=== PATIENT | female | born 1945 | race African-American/Black ===

== ENCOUNTER → 2018-01-29 | Outpatient (CLI) | payer BC, MEDICARE | END | disposition home or self-care (01) | LOC: MAMMO 10:12 | DX: Z12.31 Encounter for screening mammogram for malignant neoplasm of breast (principal) | CPT/HCPCS: 77063; 77067 ==

== ENCOUNTER → 2019-05-26 | Outpatient (CLI) | payer BC ==
[~2019-05-26] MED LIST: AMLO5TAB10 PO; CLOP75TA57 PO; CRESTOR10 MG PO; METO25TA4 PO; NAPR250T6 PO
--- NOTE | 2019-05-26 14:07 | KCIC ---
CT of the chest without contrast, low dose lung cancer screening protocol COMPARISON STUDY: None TECHNIQUE: Multidetector CT imaging of the chest was performed using a low-dose, lung cancer screening protocol. INDICATION: 74-year-old female with greater than greater than 30 pack-year history of smoking. Discussion: No pneumothorax is identified. No pleural effusion is seen. No acute appearing focal consolidative infiltrate is identified. 2 mm noncalcified nodule seen in the left upper lobe (thin axial image 64). Somewhat ill-defined groundglass opacity adjacent to the thoracic aorta and the anterior left upper lobe is seen (axial image 115). There is 7 mm noncalcified nodule in the left lower lobe (axial image 149. There is an adjacent 3 mm nodule. Possible minimal areas of calcification are seen within these nodules. Subpleural blebs are seen in the bilateral lung apices, greater on the right. Scattered ill-defined groundglass opacities are seen throughout the right upper lobe. These range in size measuring 3 to 5 mm in thickness. Reference lesions can be seen on axial image 55 and 68 Heart size is normal. Mitral valve calcification noted. No significant pericardial effusion is identified. Limited noncontrast enhanced evaluation the mediastinum demonstrates no gross mediastinal adenopathy. Upper and lower lobe bronchiectasis is noted. Central airways remain grossly patent. Limited visualization of the upper abdomen demonstrates no acute abnormality. No acute osseous changes are seen.. Anterior wedging of the T8 and T7 vertebral bodies likely reflects chronic compression fracture. No acute osseous abnormality is identified. IMPRESSION: 1. Scattered pulmonary nodules largest measuring 7 mm in the left lower lobe. Other smaller pulmonary nodules and groundglass opacities as described Lung RADS category 3. Recommend 6 month low-dose CT scan 2. Changes of COPD CT DOSING PQRS STATEMENT: One or more of the following individualized dose reduction techniques were utilized for this examination: 1. Automated exposure control 2. Adjustment of the mA and/or kV according to patient size 3. Use of iterative reconstruction technique Electronically signed by: Santiago Marcano MD (05/26/2019 2:04 PM) [id number]
== END | disposition home or self-care (01) ==
LOC: KCIC CT 09:36
PROVIDERS: ATTEND Internal Medicine
DX: Z12.2 Encounter for screening for malignant neoplasm of respiratory organs (principal); F17.200 Nicotine dependence, unspecified, uncomplicated; R91.8 Other nonspecific abnormal finding of lung field; J44.9 Chronic obstructive pulmonary disease, unspecified; I05.9 Rheumatic mitral valve disease, unspecified; R91.1 Solitary pulmonary nodule
CPT/HCPCS: G0297

== ENCOUNTER 2020-05-31 12:22 | Observation (INO) | payer BC, MEDICARE ==
[~2020-05-31] VITALS: Ht 162.6 cm; Wt 69.9 kg
[~2020-05-31 12:22] MED LIST changes: +AMLO-186 PO; -AMLO5TAB10 PO
--- NOTE | 2020-05-31 12:46 | RAD ---
Examination: PORTABLE CHEST 1V History: Reason: CHEST PAIN / Comparison/Correlation: 05/26/2019 low-dose CT chest Findings: Portable erect frontal view of chest was obtained. Heart size and pulmonary vessels are normal. No infiltrate or pleural effusion. No pneumothorax. Bony structures are unremarkable. Impression: No active disease. Electronically signed by: Zoran Jones MD (05/31/2020 12:43 PM) [id number]
[2020-05-31] MEDS ORDERED: AMLO-186 PO (12:59)
[2020-05-31] MEDS ORDERED: CHOL500021 PO (12:59)
[2020-05-31] MEDS ORDERED: ASPI325T11 PO (12:59)
[2020-05-31] MEDS ORDERED: HYDR-2759 PO (13:00)
[2020-05-31] MEDS ORDERED: METO-239 PO (13:00)
[2020-05-31] MEDS ORDERED: NAPR-514 PO (13:00)
[2020-05-31] MEDS ORDERED: ATOR20TA58 PO (13:00)
[2020-05-31 13:01] LABS: BASO # 0.1 x10^3/uL (0.0-0.2); BASO % 1 % (0-3); EOS # 0.2 x10^3/uL (0.0-0.7); EOS % 4 % (0-3); HEMATOCRIT 40.4 % (36.0-47.0); HEMOGLOBIN 13.2 g/dL (12.0-15.5); LYMPH # 1.6 x10^3/uL (1.0-4.8); LYMPH % 32 % (24-48); MEAN CORPUSCULAR HEMOGLOBIN 27 pg (25-35); MEAN CORPUSCULAR HGB CONC 33 g/dL (31-37); MEAN CORPUSCULAR VOLUME 81 fL (79-100); MONO # 0.2 x10^3/uL (0.0-1.1); MONO % 5 % (0-9); NEUT # 2.9 x10^3/uL (1.8-7.7); NEUT % 58 % (31-73); PLATELET COUNT 204 x10^3/uL (140-400); RED BLOOD COUNT 4.97 x10^6/uL (3.50-5.40); RED CELL DISTRIBUTION WIDTH 16.2 % (11.5-14.5)
[2020-05-31 13:12] LABS: CALCIUM 9.8 mg/dL (8.5-10.1); CREATININE 0.9 mg/dL (0.6-1.0); GFR 74.3; POTASSIUM 4.1 mmol/L (3.5-5.1)
[2020-05-31 13:18] LABS: ALBUMIN 3.8 g/dL (3.4-5.0); MAGNESIUM 1.7 mg/dL (1.8-2.4); TOTAL BILIRUBIN 0.3 mg/dL (0.2-1.0); TOTAL PROTEIN 7.8 g/dL (6.4-8.2)
[2020-05-31 13:28] LABS: PROTHROMBIN TIME PATIENT 13.2 SEC (11.7-14.0)
[2020-05-31] MEDS ORDERED: MAGNESIUM SULFATE 1GM 100 ML IV ONE (14:00)
--- NOTE | 2020-05-31 14:39 | PHYS DOC ---
Past Medical History Past Medical History: High Cholesterol, Hypertension, TIA Past Surgical History: No Surgical History Smoking Status: Current Every Day Smoker Alcohol Use: None General Adult EDM: Chief Complaint: CHEST PAIN HPI: HPI: Patient is a 75 year old female who presented to ER with complaint of substernal chest pain started last night and went away. Patient said pain came back again this morning so she came here for evaluation. Patient denies any nausea vomiting, no diaphoresis. Patient had no history of coronary disease. Patient has history of hypertension. Patient had no fever, no cough. Patient said her niece due to Covid infection 4 months ago. Patient says she has been checked with multiple times for COvic and all came back negative. Review of Systems: Review of Systems: Constitutional: Denies fever or chills. [] Eyes: Denies change in visual acuity. [] HENT: Denies nasal congestion or sore throat. [] Respiratory: Denies cough or shortness of breath. [] Cardiovascular: Positive for chest pain, no edema. GI: Denies abdominal pain, nausea, vomiting, bloody stools or diarrhea. [] : Denies dysuria. [] Musculoskeletal: Denies back pain or joint pain. [] Integument: Denies rash. [] Neurologic: Denies headache, focal weakness or sensory changes. [] Endocrine: Denies polyuria or polydipsia. [] Lymphatic: Denies swollen glands. [] Psychiatric: Denies depression or anxiety. [] Heart Score: HEART Score for Chest Pain: HEART Score for Chest Pain Response (Comments) Value History Moderately Suspicious 1 ECG Nonspecific Repolarizatio 1 Age > 65 2 Risk Factors >3 Risk Factors or Hx CAD 2 Troponin < Normal Limit 0 Total 6 Risk Factors: Risk Factors: DM, Current or recent (<one month) smoker, HTN, HLP, family history of CAD, obesity. Risk Scores: Score 0 - 3: 2.5% MACE over next 6 weeks - Discharge Home Score 4 - 6: 20.3% MACE over next 6 weeks - Admit for Clinical Observation Score 7 - 10: 72.7% MACE over next 6 weeks - Early Invasive Strategies Current Medications: Current Medications Medications (Trade) Dose Ordered Sig/Sharee Start Time Stop Time Status Last Admin Dose Admin Magnesium Sulfate/ Dextrose 100 ml @ 100 mls/hr 1X ONCE 05/31/20 14:00 05/31/20 14:59 05/31/20 14:17 100 MLS/HR Allergies: Allergies: Allergies Coded Allergies Type Severity Reaction Last Updated Verified Penicillins Allergy Unknown 08/29/13 Yes ampicillin Allergy Unknown 08/29/13 Yes codeine Allergy Unknown 08/29/13 Yes Physical Exam: PE: Constitutional: Well developed, well nourished, no acute distress, non-toxic appearance. [] HENT: Normocephalic, atraumatic, bilateral external ears normal, oropharynx moist, no oral exudates, nose normal. [] Eyes: PERRLA, EOMI, conjunctiva normal, no discharge. [] Neck: Normal range of motion, no tenderness, supple, no stridor. [] Cardiovascular:Heart rate regular rhythm, loud systolic murmur [] Lungs & Thorax: Bilateral breath sounds clear to auscultation [] Abdomen: Bowel sounds normal, soft, no tenderness, no masses, no pulsatile masses. [] Skin: Warm, dry, no erythema, no rash. [] Back: No tenderness, no CVA tenderness. [] Extremities: No tenderness, no cyanosis, no clubbing, ROM intact, no edema. [] Neurologic: Alert and oriented X 3, normal motor function, normal sensory function, no focal deficits noted. [] Psychologic: Affect normal, judgement normal, mood normal. [] Current Patient Data: Labs: Laboratory Tests Test 05/31/20 12:48 White Blood Count 5.0 x10^3/uL (4.0-11.0) Red Blood Count 4.97 x10^6/uL (3.50-5.40) Hemoglobin 13.2 g/dL (12.0-15.5) Hematocrit 40.4 % (36.0-47.0) Mean Corpuscular Volume 81 fL (79-100) Mean Corpuscular Hemoglobin 27 pg (25-35) Mean Corpuscular Hemoglobin Concent 33 g/dL (31-37) Red Cell Distribution Width 16.2 % (11.5-14.5) H Platelet Count 204 x10^3/uL (140-400) Neutrophils (%) (Auto) 58 % (31-73) Lymphocytes (%) (Auto) 32 % (24-48) Monocytes (%) (Auto) 5 % (0-9) Eosinophils (%) (Auto) 4 % (0-3) H Basophils (%) (Auto) 1 % (0-3) Neutrophils # (Auto) 2.9 x10^3/uL (1.8-7.7) Lymphocytes # (Auto) 1.6 x10^3/uL (1.0-4.8) Monocytes # (Auto) 0.2 x10^3/uL (0.0-1.1) Eosinophils # (Auto) 0.2 x10^3/uL (0.0-0.7) Basophils # (Auto) 0.1 x10^3/uL (0.0-0.2) Prothrombin Time 13.2 SEC (11.7-14.0) Prothrombin Time INR 1.0 (0.8-1.1) Activated Partial Thromboplast Time 36 SEC (24-38) Sodium Level 140 mmol/L (136-145) Potassium Level 4.1 mmol/L (3.5-5.1) Chloride Level 104 mmol/L (98-107) Carbon Dioxide Level 22 mmol/L (21-32) Anion Gap 14 (6-14) Blood Urea Nitrogen 16 mg/dL (7-20) Creatinine 0.9 mg/dL (0.6-1.0) Estimated GFR (Cockcroft-Gault) 74.3 BUN/Creatinine Ratio 18 (6-20) Glucose Level 126 mg/dL (70-99) H Calcium Level 9.8 mg/dL (8.5-10.1) Magnesium Level 1.7 mg/dL (1.8-2.4) L Total Bilirubin 0.3 mg/dL (0.2-1.0) Aspartate Amino Transferase (AST) 24 U/L (15-37) Alanine Aminotransferase (ALT) 16 U/L (14-59) Alkaline Phosphatase 61 U/L (46-116) Troponin I Quantitative < 0.017 ng/mL (0.000-0.055) KR-Xlu-O-Type Natriuretic Peptide 1664 pg/mL (0-124) H Total Protein 7.8 g/dL (6.4-8.2) Albumin 3.8 g/dL (3.4-5.0) Albumin/Globulin Ratio 1.0 (1.0-1.7) Lipase 57 U/L (73-393) L Laboratory Tests 10/26/20 12:48 Laboratory Tests 05/31/20 12:48 Vital Signs: Vital Signs Date Time Temp Pulse Resp B/P (MAP) Pulse Ox O2 Delivery O2 Flow Rate FiO2 05/31/20 13:03 98.8 98 24 137/65 (89) 100 Room Air 98.8 EKG: EKG: EKG was done 1232, heart rate of 93 bpm, sinus rhythm, no ST segment ovation, T wave inversion in lateral leads. Radiology/Procedures: Radiology/Procedures: [][facility] [address] [place] [address] IMAGING REPORT Signed PATIENT: FLAKO SANDERS AACCOUNT: [id number] : 1945 LOCATION: ER AGE: 75 SEX: F EXAM STATUS: REG ER ORD. PHYSICIAN: JOSEF EDDY DO REASON: CHEST PAIN PROCEDURE: PORTABLE CHEST 1V Examination: PORTABLE CHEST 1V History: Reason: CHEST PAIN / Comparison/Correlation: 05/26/2019 low-dose CT chest Findings: Portable erect frontal view of chest was obtained. Heart size and pulmonary vessels are normal. No infiltrate or pleural effusion. No pneumothorax. Bony structures are unremarkable. Impression: No active disease. Electronically signed by: Zoran Marie MD (05/31/2020 12:43 PM) [id number] DICTATED and SIGNED BY: ZORAN MARIE MD DATE: 05/31/20 1243 Course & Med Decision Making: Course & Med Decision Making Pertinent Labs and Imaging studies reviewed. (See chart for details) Patient is a 74-year-old female who presented to ER with chest pain, her lab work and EKG did not show any acute problem, however patient have a new detected systolic heart murmur on physical examination. Patient will need to be admitted for further evaluation and treatment, discussed with Dr. Ashraf who agreed to admit patient Dragon Disclaimer: Dragon Disclaimer: This electronic medical record was generated, in whole or in part, using a voice recognition dictation system. Departure Departure Impression: Primary Impression: Chest pain Disposition: ADMITTED INPT THIS HOSP Admitting Physician: HALEYS (Dr. Riffel) Condition: IMPROVED Referrals: GALLITO SOLANO MD (PCP) JOSEF EDDY DO May 31, 2020 14:39
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
[2020-05-31] MEDS ORDERED: ACETAMINOPHEN 325 MG TABLET. PO PRN (16:15)
[2020-05-31] MEDS ORDERED: DOCUSATE SODIUM 100 MG CAPSULE. PO PRN (16:15)
[2020-05-31] MEDS ORDERED: ONDANSETRON PF 4 MG/2 ML VIAL. IV PRN (16:15)
[2020-05-31] MEDS ORDERED: NITROGLYCERIN SUBLINGUAL 0.4 MG BOTTLE OF 25. SL PRN (16:15)
[2020-05-31] MEDS ORDERED: HYDROcodone/APAP 5/325MG 1 TAB TABLET PO PRN (16:30)
[2020-05-31] MEDS ORDERED: ASPIRIN ENTERIC COATED 325 MG TABLET.DR. PO ONE (16:30)
--- NOTE | 2020-05-31 17:37 | EKG ---
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
[2020-05-31 19:10] VITALS: BP 121/56
--- NOTE | 2020-05-31 19:10 | NUR ---
Pt arrived to room 201 per wheelchair at 1845 pt oriented to room and surroundings,poc explained pt denied pain assessment completed vs obtained and stable. Will resume care and continue to monitor pt call light in reach.
[2020-05-31] MEDS: ATORVASTATIN CALCIUM 20 MG TABLET PO SCH (21:09)
[2020-05-31] MEDS: ENOXAPARIN 40 MG/0.4 ML SYRINGE. SQ SCH (21:09)
[2020-05-31 22:42] VITALS: BP 112/49
[2020-06-01] VITALS (18 sets, daily range): BP systolic 92–146; BP diastolic 42–69
[2020-06-01 05:46] LABS: CALCIUM 8.8 mg/dL (8.5-10.1); CREATININE 0.8 mg/dL (0.6-1.0); GFR 85.1; MAGNESIUM 1.7 mg/dL (1.8-2.4); POTASSIUM 4.3 mmol/L (3.5-5.1)
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
[2020-06-01] MEDS ORDERED: MAGNESIUM SULFATE 2GM 50 ML IV ONE (10:00)
[2020-06-01] MEDS ORDERED: IOHEXOL 300 MG/ML 100ML VIAL. ONE ×2 (10:05→12:06)
[2020-06-01] MEDS ORDERED: LIDOCAINE 1% PF 2 ML VIAL. ONE (10:05)
[2020-06-01] MEDS: amLODIPine BESYLATE 5 MG TABLET PO SCH (10:14)
[2020-06-01] MEDS: METOPROLOL SUCC 24HR ER 25 MG TAB.ER.24H. PO SCH (10:14)
[2020-06-01] MEDS: ASPIRIN ENTERIC COATED 325 MG TABLET.DR. PO SCH (10:14)
[2020-06-01 10:37] LABS: CHOLESTEROL/HDL RATIO 2.7
[2020-06-01 10:53] LABS: BILIRUBIN,URINE NEGATIVE (NEG); CLARITY,URINE CLEAR; COLOR,URINE YELLOW; NITRITE,URINE NEGATIVE (NEG); PROTEIN,URINE NEGATIVE (NEG-TRACE)
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
[2020-06-01 11:02] LABS: BACTERIA,URINE 0 /HPF (0-FEW); RBC,URINE 0 /HPF (0-2); WBC,URINE 0 /HPF (0-4)
[2020-06-01] MEDS ORDERED: fentaNYL PF VIAL 100 MCG/2 ML VIAL ONE (11:25)
[2020-06-01] MEDS ORDERED: NITROGLYCERIN 200 MCG/2 ML SYRINGE FOR CATH/VASC LAB. ONE (11:26)
[2020-06-01] MEDS ORDERED: MIDAZOLAM HCL/PF 2 MG/2 ML VIAL. ONE (11:26)
[2020-06-01] MEDS ORDERED: HEPARIN for IV BOLUS 10,000 UNIT/10 ML VIAL. ONE (11:26)
[2020-06-01] MEDS ORDERED: VERAPAMIL 5 MG/2 ML VIAL. ONE (11:26)
[2020-06-01] MEDS ORDERED: fentaNYL PF VIAL 100 MCG/2 ML VIAL IV ONE (11:30)
[2020-06-01] MEDS ORDERED: NITROGLYCERIN 200 MCG/2 ML SYRINGE FOR CATH/VASC LAB. IART ONE (11:30)
[2020-06-01] MEDS ORDERED: LIDOCAINE 1% PF 2 ML VIAL. INJ ONE (11:30)
[2020-06-01] MEDS ORDERED: HEPARIN for IV BOLUS 10,000 UNIT/10 ML VIAL. IART ONE (11:30)
[2020-06-01] MEDS ORDERED: VERAPAMIL 5 MG/2 ML VIAL. IART ONE (11:30)
[2020-06-01] MEDS ORDERED: IODIXANOL 320 MG/ML 100 ML VIAL. IART ONE (11:30)
[2020-06-01] MEDS ORDERED: MIDAZOLAM HCL/PF 2 MG/2 ML VIAL. IV ONE (11:30)
--- NOTE | 2020-06-01 11:33 | NUR ---
SS following for discharge planning. SS reviewed pt chart and discussed with pt RN. Pt is from home and is currently on room air. PT/OT ordered. SS will continue to follow for discharge planning.
[2020-06-01] MEDS ORDERED: CONTRAST GIVEN. MC PRN (11:45)
[2020-06-01] MEDS ORDERED: IOHEXOL 300 MG/ML 100ML VIAL. IART ONE (12:00)
--- NOTE | 2020-06-01 15:17 | CARD ---
MR#: [id number] Date of Study: 06/01/2020 Ordering Physician: SAIMA LADD, Referring Physician: SAIMA LADD Tech: Nat Pepe APPROVED REPORT Technologist: Nat Pepe Nurse: Niya Torres RN Procedure(s) performed: Left heart catheterization and selective coronary angiography via right trans radial approach fl time: 18.3 min dose: 76 gycm2 contrast: 224 ml moderate sedation: 54 mins INDICATION The indication(s) include : unstable angina . CSHA Clinical Frailty Scale CSHA Clinical Frailty Scale: Mildly Frail Heart Failure Heart Failure: No PROCEDURE NARRATIVE After explaining the risks, benefits and alternative options, informed consent was obtained from aidan ent. Patient was brought to the cardiac Hazard Mitigation Officer and right wrist was prepped and draped in the usual fashion after confirming a positive modified Obdulio's test. Arterial access was obtained in the [facility] t radial artery and a 6 [place] sheath was inserted. 6 [place] Tobin catheter was used to perform keely ective angiography of the left coronary artery. Several attempts to engage the right coronary artery with the Chadd catheter followed by 6 [place] JR4, 6 [place] AR mod and 6 [place] AL-1 catheters were u nsuccessful. A pigtail catheter was placed in the ascending aorta and root aortogram was performed t hat did not show any right coronary artery takeoff confirming the earlier suspicion that a nondominan t RCA is coming from the LAD. We will confirm this with coronary CT angiography at a later date. LV EDP and transaortic gradients were measured. Left ventriculography was not performed due to contrast load used for the procedure. Patient tolerated the procedure well. Hemostasis was achieved using T R band. There were no immediate complications. The following findings were noted. FINDINGS 1. Hemodynamics: Left ventricular end-diastolic pressure of 13 mmHg. No pullback gradient across th e aortic valve. 2. Coronary angiography: a. The left main coronary artery arose from the left sinus of Valsalva, gave rise to the left anteri or descending and left circumflex arteries and did not show any significant stenosis. b. The left anterior descending artery did not show any significant stenosis. c. The left circumflex artery was a large and dominant vessel that did not show any significant sten osis. d. The right coronary artery appears to be nondominant and arising from the mid segment of the left anterior descending artery. We will confirm this with coronary CT angiography at a later date. Conclusion No significant coronary artery stenosis. The right coronary artery appears to be nondominant, anomal ous with the takeoff from left anterior descending artery. We will confirm this with coronary CT ang iography as an outpatient. Recommendations Medical Therapy Signed by : Saima Ladd, Electronically Approved : 06/01/2020 15:16:45
[2020-06-01] MEDS: ENOXAPARIN 40 MG/0.4 ML SYRINGE. SQ SCH (17:00)
[2020-06-01] MEDS: ATORVASTATIN CALCIUM 20 MG TABLET PO SCH (20:47)
[2020-06-02 02:33] VITALS: BP 111/60
[2020-06-02 03:28] LABS: BASO % 1 % (0-3); EOS # 0.2 x10^3/uL (0.0-0.7); EOS % 4 % (0-3); HEMATOCRIT 36.5 % (36.0-47.0); HEMOGLOBIN 12.1 g/dL (12.0-15.5); LYMPH # 1.4 x10^3/uL (1.0-4.8); LYMPH % 34 % (24-48); MEAN CORPUSCULAR HEMOGLOBIN 27 pg (25-35); MEAN CORPUSCULAR HGB CONC 33 g/dL (31-37); MEAN CORPUSCULAR VOLUME 81 fL (79-100); MONO # 0.4 x10^3/uL (0.0-1.1); MONO % 9 % (0-9); NEUT # 2.3 x10^3/uL (1.8-7.7); NEUT % 53 % (31-73); PLATELET COUNT 166 x10^3/uL (140-400); RED CELL DISTRIBUTION WIDTH 15.9 % (11.5-14.5); WHITE BLOOD COUNT 4.3 x10^3/uL (4.0-11.0)
[2020-06-02 03:37] LABS: CALCIUM 9.1 mg/dL (8.5-10.1); CREATININE 0.9 mg/dL (0.6-1.0); GFR 74.3; POTASSIUM 4.2 mmol/L (3.5-5.1)
[2020-06-02 07:00] VITALS: BP 111/54
[2020-06-02] MEDS: ASPIRIN ENTERIC COATED 325 MG TABLET.DR. PO SCH (09:15)
[2020-06-02] MEDS: amLODIPine BESYLATE 5 MG TABLET PO SCH (09:16)
[2020-06-02] MEDS: METOPROLOL SUCC 24HR ER 25 MG TAB.ER.24H. PO SCH (09:17)
--- NOTE | 2020-06-02 09:48 | SNU/HH DC ---
DISCHARGE WITH HOME HEALTH DISCHARGE INFORMATION: Final Diagnosis: Problems Medical Problems: (1) Chest pain Status: Acute Condition on Discharge: Stable CODE STATUS: Code Status: Full HOME HEALTH: Face to Face: I certify this patient is under my care and that I, or a nurse practitioner or physician's therapist's assistant working with me, had a face to face encounter that meets the physician face to face encounter requirements with this patient on []. Medical Complications: Other (Recent hospitalization with cardiac cath check cath site) Intermediate For: Assess Cardiopulm Status, Assess & Educate Safety RN For Eval/Treatment: Yes Physical Therapy For: Evalulation/Treatment Occupational Therapy For: Evaluation/Treatment Home Health Aide For: Self-care HEAD START DIRECTOR For: Community Resources Pt Meets Homebound Status: Unsteady balance w/ amb, POST DISCHARGE ORDERS: DIET AFTER DISCHARGE: Cardiac CERTIFICATION STATEMENT: Certification Statement: Certification Statement: Based on the above finding, I certify that this patient is confined to the home and needs intermittent residential care, physical therapy and/or speech therapy, or continues to need occupational therapy.~ This patient is under my care, and I have initiated the establishment of the plan of care.~ This patient will be followed by myself or a community physician who will periodically review the plan of care. Home Meds Reported Medications Metoprolol Succinate (METOPROLOL SUCCINATE ( XL )) 25 Mg Tab.er.24h, 1 TAB PO DAILY 05/31/20 Naproxen (NAPROXEN) 500 Mg Tablet, 1 TAB PO BID 05/31/20 Atorvastatin Calcium (ATORVASTATIN CALCIUM) 20 Mg Tablet, 1 TAB PO DAILY 05/31/20 Hydrocodone/Acetaminophen (Hydrocodone-Acetamin 5-325 mg) 1 Each Tablet, PO 05/31/20 Cholecalciferol (Vitamin D3) (D3-50) 50,000 Unit Capsule, 1000 UNIT PO DAILY, CAP 05/31/20 Amlodipine Besylate (AMLODIPINE BESYLATE) 5 Mg Tablet, 5 MG PO DAILY, TAB 05/31/20 Aspirin (ASPIRIN EC) 325 Mg Tablet., 1 TAB PO DAILY, #30 TAB 5 Refills 05/31/20 DIXON BAEZA III DO Jun 02, 2020 09:48
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
[2020-06-02 10:53] VITALS: BP 105/57
--- NOTE | 2020-06-02 12:00 | CARD ---
MR#: [id number] Date of Study: 06/01/2020 Ordering Physician: NOHEMI MICHELE, Referring Physician: NOHEMI MICHELE, Tech: Sarita Ahumada APPROVED REPORT EXAM: Two-dimensional and M-mode echocardiogram with Doppler and color Doppler. Other Information Quality : AverageHR: 61bpm INDICATION Chest Pain Murmur RISK FACTORS Smoking 2D DIMENSIONS RVDd2.7 (2.9-3.5cm)Left Atrium(2D)4.5 (1.6-4.0cm) IVSd1.2 (0.7-1.1cm)Aortic Root(2D)3.6 (2.0-3.7cm) LVDd4.9 (3.9-5.9cm)LVOT Diameter2.3 (1.8-2.4cm) PWd1.1 (0.7-1.1cm)LVDs2.5 (2.5-4.0cm) FS (%) 49.0 %SV88.7 ml LVEF(%)80.2 (>50%) Aortic Valve AoV Peak Wolf.142.4cm/sAoV VTI30.9cm AO Peak GR.8.1mmHgLVOT VTI 23.09cm AO Mean GR.4mmHgAI P 1/2 Bfkb987ht Mitral Valve MV E Noyfiazr947.5cm/sMV E Peak Gr.87mmHg MV DECEL [id number] A Eqvozcsh19.3cm/s E/A Ratio4.4 TDI Lateral E' P. V6.44cm/sMedial E' P. V4.07cm/s E/Lateral E'20.6E/Medial E'32.6 Tricuspid Valve TR P. Yahfwosg478lf/sRAP BBJOFNDA0kmPb TR Peak Gr.65cgYkGSMP97duLk Pulmonary Vein S1 Gxgtqend88.9cm/sS2 Kiixizga91.49cm/s D2 Dtznhrjg50.5cm/s LEFT VENTRICLE The left ventricle is normal size. There is borderline to mild concentric left ventricular hypertroph y. The left ventricular systolic function is normal. The ejection fraction is 55%. There is normal LV segmental wall motion. The left ventricular diastolic function and filling is normal for age. RIGHT VENTRICLE The right ventricle is normal size. There is normal right ventricular wall thickness. The right ventr icular systolic function is normal. ATRIA The left atrium is mildly dilated. The right atrium size is normal. The interatrial septum is intact with no evidence for an atrial septal defect or patent foramen ovale as noted on 2-D or Doppler imagi ng. AORTIC VALVE The aortic valve is thickened but opens well. Doppler and Color Flow revealed mild aortic regurgitati on. There is no significant aortic valvular stenosis. Calculated aortic valve area is 3.0 cm2 with ma ximum pressure gradient of 8 mmHg and mean pressure gradient of 5 mmHg. MITRAL VALVE Mitral annular calcification is mild. There is no evidence of mitral valve prolapse. There is no mitr al valve stenosis. Doppler and Color-flow revealed trace to mild mitral regurgitation. TRICUSPID VALVE The tricuspid valve is normal in structure and function. Doppler and Color Flow revealed mild tricusp id regurgitation with an estimated PAP of 36 mmHg. There is no tricuspid valve stenosis. PULMONIC VALVE The pulmonic valve is not well visualized. Doppler and Color Flow revealed no pulmonic valvular regur gitation. GREAT VESSELS The aortic root is mildly enlarged. The IVC is normal in size and collapses >50% with inspiration. PERICARDIAL EFFUSION There is no evidence of significant pericardial effusion. Critical Notification Critical Value: No <Conclusion> The left ventricular systolic function is normal. The ejection fraction is 55%. There is normal LV segmental wall motion. Mild aortic regurgitation. Trace to mild mitral regurgitation. Mild tricuspid regurgitation with an estimated PAP of 36 mmHg. There is no evidence of significant pericardial effusion. Signed by : Steve Ladd, Electronically Approved : 06/02/2020 12:00:00
--- NOTE | 2020-06-02 13:26 | NUR ---
SS following up with discharge planning. SS reviewed pt chart and discussed with pt RN. Pt is currently on room air. Pt had heart cath on 06/01/2020. Discharge order on the chart for home with self care.
--- NOTE | 2020-06-02 14:01 | PDOC ---
CHANTELL MULLIGAN BUYING AGENT 06/02/20 1401: CARDIO Progress Notes Date and Time Date of Service 06/02/2020 Time of Evaluation 1100 Subjective Subjective: No Chest Pain, No shortness of breath, No Palpitations Vitals Vitals Vital Signs Date Time Temp Pulse Resp B/P (MAP) Pulse Ox O2 Delivery O2 Flow Rate FiO2 06/02/20 10:53 97.6 98 19 105/57 (73) 99 Room Air 97.6 06/01/20 12:36 2.0 Weight Weight [ ] Input and Output Intake and Output Intake and Output 06/02/20 07:00 Intake Total 220 ml Output Total 800 ml Balance -580 ml Intake Oral 220 ml Output Urine Total 800 ml Laboratory Labs Laboratory Tests Test 06/02/20 02:43 White Blood Count 4.3 x10^3/uL (4.0-11.0) Red Blood Count 4.50 x10^6/uL (3.50-5.40) Hemoglobin 12.1 g/dL (12.0-15.5) Hematocrit 36.5 % (36.0-47.0) Mean Corpuscular Volume 81 fL (79-100) Mean Corpuscular Hemoglobin 27 pg (25-35) Mean Corpuscular Hemoglobin Concent 33 g/dL (31-37) Red Cell Distribution Width 15.9 % (11.5-14.5) Platelet Count 166 x10^3/uL (140-400) Neutrophils (%) (Auto) 53 % (31-73) Lymphocytes (%) (Auto) 34 % (24-48) Monocytes (%) (Auto) 9 % (0-9) Eosinophils (%) (Auto) 4 % (0-3) Basophils (%) (Auto) 1 % (0-3) Neutrophils # (Auto) 2.3 x10^3/uL (1.8-7.7) Lymphocytes # (Auto) 1.4 x10^3/uL (1.0-4.8) Monocytes # (Auto) 0.4 x10^3/uL (0.0-1.1) Eosinophils # (Auto) 0.2 x10^3/uL (0.0-0.7) Basophils # (Auto) 0.0 x10^3/uL (0.0-0.2) Sodium Level 141 mmol/L (136-145) Potassium Level 4.2 mmol/L (3.5-5.1) Chloride Level 105 mmol/L (98-107) Carbon Dioxide Level 25 mmol/L (21-32) Anion Gap 11 (6-14) Blood Urea Nitrogen 16 mg/dL (7-20) Creatinine 0.9 mg/dL (0.6-1.0) Estimated GFR (Cockcroft-Gault) 74.3 Glucose Level 78 mg/dL (70-99) Calcium Level 9.1 mg/dL (8.5-10.1) Physical Exam HEENT: Neck Supple W Full Motion Chest: Symmetric LUNGS: Clear to Auscultation Heart: S1S2, RRR (SR) Abdomen: Soft N/T Extremities: No Calf Tenderness Neurology: alert, oriented, follow commands Assessment Assessment 1. Chest pain: possibly MSK. 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 Tobaccoism with likely COPD at least 40 pk yr 3. HTN: controlled 4. HLP 5. Hx of TIA Recommendations 1. Follow up in office. Will arrange for outpt CT chest angio to further confirm the anomalous RCA 2. Continue home HLP/HTN regimen 3. Continue ASA with prior hx of TIA 4. Smoking cessation Justicifation of Admission Dx: Justifications for Admission: Justification of Admission Dx: Yes SAIMA FAULKNER MD 06/02/20 1654: CARDIO Progress Notes Assessment Assessment Patient seen and examined. Agree with EXHIBIT DESIGNER's assessment and plan. Cardiac catheterization did not show any lesions needing intervention. Plan for outpatient coronary CT angiography to confirm anomalous RCA 2D echo showed normal LV function without any wall motion abnormalities. Okay for DC from cardiac standpoint CHANTELL MULLIGAN APRN Jun 02, 2020 14:01 SAIMA FAULKNER MD Jun 02, 2020 16:54
== END 2020-06-02 15:10 | disposition home or self-care (01) ==
LOC: ER 12:22 → ED HOLD 15:00 → 2 NORTH 16:41
PROVIDERS: ADMIT Internal Medicine; ATTEND Internal Medicine
DX: R07.89 Other chest pain (principal); Z20.828 Contact with and (suspected) exposure to other viral communicable diseases; G45.9 Transient cerebral ischemic attack, unspecified; I10 Essential (primary) hypertension; E78.5 Hyperlipidemia, unspecified; K08.89 Other specified disorders of teeth and supporting structures; J44.9 Chronic obstructive pulmonary disease, unspecified; I20.0 Unstable angina; E83.42 Hypomagnesemia; F17.210 Nicotine dependence, cigarettes, uncomplicated; E78.00 Pure hypercholesterolemia, unspecified; M94.0 Chondrocostal junction syndrome [Tietze]; R01.1 Cardiac murmur, unspecified; Z79.899 Other long term (current) drug therapy; Z98.890 Other specified postprocedural states; Z79.82 Long term (current) use of aspirin; Z90.710 Acquired absence of both cervix and uterus
CPT/HCPCS: 36415; 71045; 80048; 80053; 80061; 81001; 83690; 83735; 83880; 84443; 84484; 85025; 85610; 85730; 87426; 93005; 93306; 93458; 93567; 96365; 96366; 96372; 96375; 97165; 97535; 99152; 99153; 99285; C1769; C1892; G0378; J1644; J1650; J2250; J3010; J3475; J3490; Q9967; U0003; G0379

== ENCOUNTER → 2020-08-25 | Outpatient (CLI) | payer MEDICARE ==
[~2020-08-25] MED LIST changes: +ASPI325T11 PO; +ATOR20TA58 PO; +CHOL500021 PO; +HYDR-2759 PO; +METO-239 PO; +NAPR-514 PO; +NAPR-699 PO; -NAPR250T6 PO
--- NOTE | 2020-08-27 12:41 | RAD ---
DATE: 08/25/2020 9:20 AM EXAM: MAMMO TIM SCREENING BILATERAL HISTORY: Screening COMPARISON: 01/29/2018 Bilateral CC and MLO views of the breasts were performed. Bilateral breast tomosynthesis was performed in CC and MLO projections. This study was interpreted with the benefit of Computerized Aided Detection (CAD). FINDINGS: Breast Density: HETERO The breast parenchyma Is heterogeneously dense, which could reduce sensitivity of mammography. Breast parenchyma level C No suspicious masses, microcalcifications or architectural distortion is present to suggest malignancy in either breast. The visualized axillae are unremarkable. IMPRESSION: No mammographic evidence of malignancy. BI-RADS CATEGORY: 1 NEGATIVE RECOMMENDED FOLLOW-UP: 12M 12 MONTH FOLLOW-UP Annual screening mammography is recommended, unless clinically indicated sooner based on symptoms or change in physical exam. PQRS compliance statement: Patient information was entered into a reminder system with a target due date for the next mammogram. Mammography is a sensitive method for finding small breast cancers, but it does not detect them all and is not a substitute for careful clinical examination. A negative mammogram does not negate a clinically suspicious finding and should not result in delay in biopsying a clinically suspicious abnormality. "Our facility is accredited by the [employer] Mammography Program."
== END ==
LOC: MAMMO 09:17
PROVIDERS: ATTEND Internal Medicine
DX: Z12.31 Encounter for screening mammogram for malignant neoplasm of breast (principal)
CPT/HCPCS: 77063; 77067